=== PATIENT | female | born 1990 | race Caucasian/White ===

== ENCOUNTER 2023-04-05 11:25 | Emergency (ER) | payer OTHER ==
[2023-04-05] MEDS ORDERED: TORAdol 30 mg Injection IM ONE (11:36)
[2023-04-05] MEDS ORDERED: TORAdol 30 mg Injection ONE (11:41)
--- NOTE | 2023-04-05 11:41 | ERPHSYRPT ---
- History of Present Illness Time Seen by Provider: 04/05/23 11:34 Source: patient, family Exam Limitations: no limitations Physician History: pt fell and twisted right LE jumping a [place] today. No other complaints of injury. SHe thinks that she hyperextended the right knee and now very tender posterior and extending down lower right leg/ . ANkle nontender with full ROM. CHest and abd and spine all nontender. no peritoneal signs or distension. N/V intact distally. Discussed risks/benefits of CT and Toradol with pt and and they wish to proceed - these are ordered and later results were discussed. in ER provided Hx as second independent source. Method of Injury: fell, twisted Occurred: this morning Quality: constant, sharpness, stabbing Severity of Pain-Max: moderate Severity of Pain-Current: moderate Lower Extremities Pain: leg: right, knee: right Modifying Factors: Improves With: immobilization, movement Associated Symptoms: none Allergies/Adverse Reactions: No Known Drug Allergies Allergy (Unverified 04/05/23 11:34) Home Medications: Losartan Potassium [Cozaar] 25 mg PO DAILY 04/05/23 [History] - Review of Systems Constitutional: No Fever, No Chills Eyes: No Symptoms Ears, Nose, & Throat: No Symptoms Respiratory: No Cough, No Dyspnea Cardiac: No Chest Pain, No Edema, No Syncope Abdominal/Gastrointestinal: No Abdominal Pain, No Nausea, No Vomiting, No Diarrhea Genitourinary Symptoms: No Dysuria Musculoskeletal: Fall, Injury, Joint Pain, No Back Pain, No Neck Pain Skin: No Symptoms, No Rash Neurological: No Dizziness, No Focal Weakness, No Sensory Changes Psychological: No Symptoms Endocrine: No Symptoms Hematologic/Lymphatic: No Symptoms Immunological/Allergic: No Symptoms All Other Systems: Reviewed and Negative - Past Medical History Pertinent Past Medical History: No - Nursing Vital Signs Nursing Vital Signs: Initial Vital Signs Pulse Rate 70 04/05/23 11:35 Respiratory Rate 18 04/05/23 11:35 Blood Pressure 128/78 04/05/23 11:35 O2 Sat by Pulse Oximetry 100 04/05/23 11:35 Pain Scale Pain Intensity 8 - Physical Exam General Appearance: mild distress, alert Eyes, Ears, Nose, Throat Exam: moist mucous membranes Neck Exam: non-tender, supple Cardiovascular/Respiratory Exam: chest non-tender, normal breath sounds, regular rate/rhythm, no respiratory distress Gastrointestinal/Abdominal Exam: non-tender, guarding Back Exam: normal inspection, No vertebral tenderness Hips Exam: bilateral: non-tender, normal inspection, normal range of motion, no evidence of injury Legs Exam: right leg: limited range of motion, pain, soft tissue tenderness, swelling, left leg: non-tender, normal inspection, normal range of motion, no evidence of injury Knees Exam: right knee: pain, soft tissue tenderness, swelling, left knee: non-tender, normal inspection, normal range of motion, no evidence of injury Ankle Exam: bilateral ankle: non-tender, normal inspection, normal range of motion, no evidence of injury Foot Exam: bilateral foot: non-tender, normal inspection, normal range of motion, no evidence of injury DTR - Lower Extremities Exam: knee (R): 2+, knee (L): 2+, ankle (R): 2+, ankle (L): 2+ Neuro/Tendon Exam: normal sensation, normal motor functions, normal tendon functions Mental Status Exam: alert, oriented x 3, cooperative Skin Exam: normal color, warm, dry SpO2 Interpretation: normal SpO2: 97 O2 Delivery: Room Air Procedures - Splinting Location of Splint: Right, Lower Leg, Knee, Upper Leg Type of Splint: Orthoglass Long Leg Splint Splint Applied By: ED Nurse Pre-Proc Neuro Vasc Exam: normal Post-Proc Neuro Vasc Exam: neurovascular intact, unchanged from pre-exam - Course Nursing assessment & vital signs reviewed: Yes - CT Exams Lower Extremity CT Interpretation: Tele-radiologist Report, Fracture (comminuted nondisplaced right fibular head fx with knee effusion) Ordered Tests: Active Orders 24 hr Category Date Time Status LOWER EXTREMITY WO CONTRAST [CT] Stat Exams 04/05/23 11:34 Completed Medication Summary Discontinued Medications Generic Name Dose Route Start Last Admin Trade Name Freq PRN Reason Stop Dose Admin Ketorolac Tromethamine 60 mg 04/05/23 11:36 04/05/23 11:44 Ketorolac Tromethamine 30 Mg/Ml Inj IM 04/05/23 11:37 60 mg STAT ONE Administration Ketorolac Tromethamine Confirm 04/05/23 11:41 Ketorolac Tromethamine 30 Mg/Ml Inj Administered 04/05/23 11:42 Dose 60 mg .ROUTE .STK-MED ONE - Progress Progress: improved, re-examined Counseled pt/family regarding: diagnosis, need for follow-up, rad results Medical Desision Making - Independent Historian Additional History obtained from: Spouse - Discussion of managment Reviewed:: Test results, Need for additional workup Agreed on:: Treatment plan - Diagnostic Testing Diagnostic test were ordered, analyzed, and reviewed by me: Yes Radiological Interpretation: Teleradiologist Report - Risk of complications The pt has a mod risk of morbidity or mortality based on: Need for prescription drug management - Departure Departure Disposition: Home Clinical Impression: Comminuted nondisplace R Fib Fx, Derangement of right knee Condition: Good Critical Care Time: No Referrals: LEONEL VÁZQUEZ PA [Primary Care Provider] - Follow up/PCP as directed Instructions: Fracture (DC), Fibula Fracture (DC), Internal Derangement of the Knee (DC) Additional Instructions: Contact Orthopedic tomorrow to arrange definitive treatment. Use splint and crutches. Keep elevated. There may be internal knee joint injury so followup for this is also important. Use tylenol and alleve for pain. Return meantime if any concerns, numbness, increased pain or other. Since there can sometimes be additional internal injury from a fall like this, be alert to any additional symptoms and return or see your
[2023-04-05 11:50] VITALS: RESP 18
--- NOTE | 2023-04-05 13:50 | XRAY ---
CLINICAL HISTORY:Pain and swelling after fall Right COMPARISON:None. TECHNIQUE:Thin axial non-contrast CT images of the right lower extremity from the knee joint down to right ankle were obtained along with coronal and sagittal reconstructions. FINDINGS: Comminuted intra-articular fracture of the right fibular head and proximal fibula with no CT evidence of displacement. No other osseous fracture noted. Normal right ankle articulation. Normal appearance of the soft tissue structures. The joint spaces are normal. The tibiofemoral and superior tibiofibular joint spaces are normal. No evidence of lytic or sclerotic bone lesion. Mild knee joint effusion. IMPRESSION: 1. Comminuted intra-articular fracture of the right fibular head and proximal fibula with no significant displacement. 2. Mild knee joint effusion. Electronically Signed by: Maite Alvares MD. (04/05/2023 12:49:09 [employer])
[2023-04-05 14:54] VITALS: BP 112/71; PULSE 67; O2SAT 98
== END 2023-04-05 15:19 | disposition home or self-care (01) ==
LOC: ED 11:25
DX: S82.454A Nondisplaced comminuted fracture of shaft of right fibula, initial encounter for closed fracture (principal); Y93.39 Activity, other involving climbing, rappelling and jumping off; Y92.828 Other wilderness area as the place of occurrence of the external cause; M23.91 Unspecified internal derangement of right knee; Z79.899 Other long term (current) drug therapy
CPT/HCPCS: 29505; 73700; 96372; 99283; J1885